=== PATIENT | female | born 1995 | race Caucasian/White ===

== ENCOUNTER 2017-01-21 21:06 | Emergency (ER) | payer BC ==
[2017-01-21 21:19] VITALS: BP 143/93
--- NOTE | 2017-01-21 21:34 | UC ---
Complaint Female HPI - HPI Summary HPI Summary: Pt presents with concern for a yeast infection. Pt states starting Thursday had dysuria. Pt was evaluated through her insurance company medical line and an rx from [facility] was called in . PT states took one dose and started to itch, so stopped. Pt states her burning and frequency with urination and improved but now with thick white discharge and itching and concerned is a yeast infection. Pt has had previous and feels this is similar. no abdomial pain, n/v PT in BCP Pt's medications reviewed this visit - History Of Current Complaint Chief Complaint: UCGU Stated Complaint: YEAST INFECTION Time Seen by Provider: 01/21/17 21:16 Hx Obtained From: Patient Hx Last Menstrual Period: 12/28/16 ?: No Onset/Duration: Gradual Onset Timing: Constant Severity Initially: Mild Severity Currently: Mild Aggravating Factor(s): Movement Alleviating Factor(s): Position Associated Signs And Symptoms: Positive: Vaginal Discharge - Allergies/Home Medications Allergies/Adverse Reactions: Allergies Allergy/AdvReac Type Severity Reaction Status Date / Time Nitrofurantoin Allergy Swelling Verified 01/21/17 21:20 [From [facility] [employer] [facility]] PMH/Surg Hx/FS Hx/Imm Hx Previously Healthy: Yes - Surgical History Surgical History: Yes Surgery Procedure, Year, and Place: pilodinal cyst - Family History Known Family History: Positive: Cardiac Disease - Social History Occupation: Employed Full-time Lives: With Family Alcohol Use: Rare Substance Use Type: None Smoking Status (MU): Never Smoked Tobacco Review of Systems Constitutional: Negative Skin: Negative Gastrointestinal: Negative Genitourinary: Vaginal/Penile Burning, Vaginal/Penile Itching, Vaginal/Penile Discharge All Other Systems Reviewed And Are Negative: Yes Physical Exam Triage Information Reviewed: Yes Appearance: Well-Appearing, No Pain Distress, Well-Nourished Vital Signs: Initial Vital Signs Temp 99.7 F 01/21/17 21:15 Pulse 90 01/21/17 21:15 Resp 16 01/21/17 21:15 BP 143/93 01/21/17 21:15 Pulse Ox 100 01/21/17 21:15 Eye Exam: Normal ENT Exam: Normal Dental Exam: Normal Neck exam: Normal Neck: Positive: Supple, Nontender Respiratory Exam: Normal Respiratory: Positive: Chest non-tender, Lungs clear, Normal breath sounds, No respiratory distress Cardiovascular Exam: Normal Cardiovascular: Positive: RRR, No Murmur, Pulses Normal Abdominal Exam: Normal Abdomen Description: Positive: Nontender, No Organomegaly, Soft - pelvic: no lesions thick white discharge in vault and ox no bleeding no CMT no ovarian masses or tenderness Musculoskeletal Exam: Normal Neurological Exam: Normal Psychological Exam: Normal Skin Exam: Normal Complaint Female Dx - Course Course Of Treatment: pt with white discharge and reports burning and itching. will tx with Diflucan. cultures pending. pt aware will get call if different dx. pt comfortable and in agreement with plan - Differential Dx/Diagnosis Provider Diagnoses: vulvovaginitis Discharge - Discharge Plan Condition: Stable Disposition: HOME Patient Education Materials: Vulvovaginal Candidiasis (ED) Referrals: No Primary Care Phys,NOPCP [Primary Care Provider] - Additional Instructions: - you have been given the one time treatment for a yeast infection today. - the samples taken today will be sent for additional testing including sexually transmitted diseases and bacterial vaginosis. If you need a different treatment, a member of our care team will contact you - contact your doctor or return with questions or concerns
[2017-01-21] MEDS ORDERED: Fluconazole 150 MG (NF) 150 MG TAB PO ONE (21:41)
[2017-01-21] MEDS ORDERED: Fluconazole 100 MG TAB* TAB PO ONE (21:57)
[2017-01-21] MEDS ORDERED: Fluconazole 100 MG TAB* TAB PO SCH (22:00)
== END 2017-01-21 22:02 | disposition home or self-care (01) ==
LOC: UCCORT 21:06
DX: N76.0 Acute vaginitis (principal)
CPT/HCPCS: 87480; 87491; 87510; 87591; 87661; 99212; A9270-GY; G0463